=== PATIENT | female | born 1990 | race American Indian/Alaskan Native ===

== ENCOUNTER 2017-05-16 15:33 | Emergency (ER) | payer MEDICAID ==
[2017-05-16 15:55] VITALS: BP 136/71
[2017-05-16 16:23] LABS: Basophils % (Auto) 0.4 % (0.0-1.8); Eosinophils % (Auto) 1.6 % (0.0-4.3); Hematocrit 38.6 % (30.3-42.9); Mean Corpuscular HGB Conc 34 % (30-34); Mean Corpuscular Hemoglobin 30 pg (28-32); Mean Corpuscular Volume 90 fl (79-97); Platelet Count 216 K/mm3 (140-440); Red Blood Count 4.31 M/mm3 (3.65-5.03); Red Cell Distribution Width 13.3 % (13.2-15.2)
[2017-05-16 16:37] LABS: Anion Gap 15 mmol/L; Blood Urea Nitrogen 6 mg/dL (7-17); Calcium 9.3 mg/dL (8.4-10.2); Carbon Dioxide 25 mmol/L (22-30); Glucose 67 mg/dL (65-100); Potassium 3.8 mmol/L (3.6-5.0); Sodium 134 mmol/L (137-145)
[2017-05-16 16:51] LABS: Bacteria,Urine 1+ /HPF (Negative); Bilirubin,Urine NEG (Negative); Blood,Urine NEG (Negative); Ketones,Urine TR mg/dL (Negative); Leukocyte Esterase,Urine TR (Negative); Mucus,Urine FEW /HPF; Nitrite,Urine POS (Negative); Protein,Urine <15 mg/dL mg/dL (Negative); Urobilinogen,Urine < 2.0 mg/dL (<2.0)
[2017-05-16] MEDS ORDERED: NACL 0.9% 1000 ML 1,000 ML IV ONE ×2 (17:01→17:13)
--- NOTE | 2017-05-16 17:02 | Emergency Department Report ---
- General Chief complaint: Weakness Stated complaint: VAG BLEEDING/FAINTING Time Seen by Provider: 05/16/17 17:00 Source: patient Mode of arrival: Ambulatory Limitations: No Limitations - History of Present Illness Initial comments: 27-year-old female who presents emergency Department with complaint of syncope and slight vaginal spotting. Recently recognized that she was and currently has some small amount of spotting. No abdominal pain. She's had these episodes of syncope with her prior . She had a fairly extensive workup according the patient without any idea what caused her symptoms. She denies racing heart, chest pain, shortness of breath. Currently she appears mildly dehydrated. -: Sudden Severity: mild Improves with: none Associated Symptoms: easy bruising. denies: chest pain, confusion, shortness of breath - Related Data Home Medications Medication Instructions Recorded Confirmed Last Taken Vit-Fe Fumar-FA [ 1 tab PO QDAY 09/05/16 09/05/16 Unknown Vitamin] Previous Rx's Medication Instructions Recorded Last Taken Type Ferrous Sulfate [Feosol 325 MG tab] 325 mg PO BID #60 tablet 09/05/16 Unknown Rx Ibuprofen [Motrin 600 MG tab] 600 mg PO Q6H #30 tablet 09/05/16 Unknown Rx Vit-Fe Fumar-FA [ 1 each PO QDAY #30 tablet 09/05/16 Unknown Rx Vitamin] Allergies Allergy/AdvReac Type Severity Reaction Status Date / Time No Known Allergies Allergy Verified 05/16/17 15:55 ED Review of Systems ROS: Stated complaint: VAG BLEEDING/FAINTING Other details as noted in HPI Constitutional: denies: chills, fever Eyes: denies: eye pain, eye discharge, vision change ENT: denies: ear pain, throat pain Respiratory: denies: cough, shortness of breath, wheezing Cardiovascular: syncope. denies: chest pain Endocrine: no symptoms reported Gastrointestinal: denies: abdominal pain, nausea, diarrhea Genitourinary: denies: urgency, dysuria, discharge Musculoskeletal: denies: back pain, joint swelling, arthralgia Skin: denies: rash, lesions Neurological: denies: headache, weakness, paresthesias Psychiatric: denies: anxiety, depression Hematological/Lymphatic: denies: easy bleeding, easy bruising ED Past Medical Hx - Past Medical History Hx Hypertension: No Hx Congestive Heart Failure: No Hx Diabetes: No Hx Deep Vein Thrombosis: No Hx Renal Disease: No Hx Sickle Cell Disease: No Hx Seizures: No Hx Asthma: No Hx COPD: No Hx HIV: No Additional medical history: ANMENIA - Surgical History Additional Surgical History: C SECTIONx1 - Family History Family history: no significant - Social History Smoking Status: Never Smoker Substance Use Type: None - Medications Home Medications: Home Medications Medication Instructions Recorded Confirmed Last Taken Type Ferrous Sulfate [Feosol 325 MG tab] 325 mg PO BID #60 tablet 09/05/16 Unknown Rx Ibuprofen [Motrin 600 MG tab] 600 mg PO Q6H #30 tablet 09/05/16 Unknown Rx Vit-Fe Fumar-FA [ 1 each PO QDAY #30 tablet 09/05/16 Unknown Rx Vitamin] Vit-Fe Fumar-FA [ 1 tab PO QDAY 09/05/16 09/05/16 Unknown History Vitamin] ED Physical Exam - General Limitations: No Limitations General appearance: alert, in no apparent distress - Head Head exam: Present: atraumatic, normocephalic - Eye Eye exam: Present: normal appearance - ENT ENT exam: Present: mucous membranes dry - Neck Neck exam: Present: normal inspection. Absent: tenderness, meningismus - Respiratory Respiratory exam: Present: normal lung sounds bilaterally. Absent: respiratory distress - Cardiovascular Cardiovascular Exam: Present: regular rate, normal rhythm. Absent: systolic murmur, diastolic murmur, rubs, gallop - GI/Abdominal GI/Abdominal exam: Present: soft, normal bowel sounds - Extremities Exam Extremities exam: Present: normal inspection - Back Exam Back exam: Present: normal inspection - Neurological Exam Neurological exam: Present: alert, oriented X3 - Psychiatric Psychiatric exam: Present: normal affect, normal mood - Skin Skin exam: Present: warm, dry, intact, normal color. Absent: rash ED Course Vital Signs 05/16/17 05/16/17 15:48 18:13 Temperature 98.3 F Pulse Rate 90 Respiratory 18 18 Rate Blood Pressure 136/71 O2 Sat by Pulse 100 100 Oximetry ED Medical Decision Making - Lab Data Result diagrams: 05/16/17 16:07 05/16/17 16:07 Laboratory Results - last 24 hr 05/16/17 05/16/17 05/16/17 16:07 16:07 16:07 WBC 10.0 RBC 4.31 Hgb 13.0 Hct 38.6 MCV 90 MCH 30 MCHC 34 RDW 13.3 Plt Count 216 Lymph % (Auto) 27.7 [place] % (Auto) 9.6 H Eos % (Auto) 1.6 Baso % (Auto) 0.4 Lymph # 2.8 [place] # 1.0 H Eos # 0.2 Baso # 0.0 Seg Neutrophils % 60.7 Seg Neutrophils # 6.1 Sodium 134 L Potassium 3.8 Chloride 98.0 Carbon Dioxide 25 Anion Gap 15 BUN 6 L Creatinine 0.5 L Estimated GFR > 60 BUN/Creatinine Ratio 12.00 Glucose 67 Calcium 9.3 HCG, Quant 940018 H Urine Bilirubin Urine RBC (Auto) U Epithel Cells (Auto) 05/16/17 16:25 WBC RBC Hgb Hct MCV MCH MCHC RDW Plt Count Lymph % (Auto) [place] % (Auto) Eos % (Auto) Baso % (Auto) Lymph # [place] # Eos # Baso # Seg Neutrophils % Seg Neutrophils # Sodium Potassium Chloride Carbon Dioxide Anion Gap BUN Creatinine Estimated GFR BUN/Creatinine Ratio Glucose Calcium HCG, Quant Urine Bilirubin Neg Urine RBC (Auto) 2.0 U Epithel Cells (Auto) 2.0 - EKG Data -: EKG Interpreted by Or EKG shows normal: sinus rhythm, axis, intervals, QRS complexes, ST-T waves Rate: normal (73) - Medical Decision Making 27-year-old female here with complaint of syncopal episode and small amount of vaginal spotting. She has no abdominal pain. However plan to confirm IUP with ultrasound. EKG is unremarkable labs are unremarkable. I do not suspect this patient has peripartum cardiomyopathy. Plan to give IV fluids for dehydration as a suspect this is the cause of her syncope. Labs here are unremarkable. Patient has a twin gestation in her uterus. She has a small subchorionic hemorrhage. I discussed the possibility of miscarriage with her she has plans to follow up with her tectonophysicist on Thursday. At this point I do not see any reason to further evaluate her for the syncope. Plan to discharge her home. Portions of this chart were dictated with dictation software. There may be dictation errors contained within this note. Critical care attestation.: If time is entered above; I have spent that time in minutes in the direct care of this critically ill patient, excluding procedure time. ED Disposition Clinical Impression: , Twin gestation in first trimester, Syncopal episodes Disposition: DC- TO HOME OR SELFCARE Is pt being admited?: No Does the pt Need Aspirin: No Condition: Stable Instructions: Syncope (ED), Threatened Miscarriage (ED), (ED) Additional Instructions: Please follow up immediately on Thursday with your tectonophysicist. Referrals: PRIMARY CARE, [Primary Care Provider] - 3-5 Days
--- NOTE | 2017-05-16 19:15 | Ultrasound Report ---
FINAL REPORT PROCEDURE: US OB \T\lt; = 14 WK FETUS ADD GEST TECHNIQUE: Real-time transabdominal and transvaginal sonography of the uterus, placenta, amniotic fluid, adnexa, and fetus was performed with image documentation. Measurements were obtained to determine age/size. M-mode Doppler was used to document heartbeat. There is imaging of twin gestation. HISTORY: vaginal bleeding, preg COMPARISON: No prior studies are available for comparison. FINDINGS: ADDITIONAL GESTATION: There is twin gestation. Twin a: [place]-rump length of 2.4 cm corresponding to 9 weeks 1 day gestational age. Heart rate is 170 beats per minute. Twin B: [place]-rump length of 2.2 cm corresponding to 9 weeks 0 days gestational age. Heart rate is 168 beats per minute. There is a 2.9 x 1.3 x 0.6 cm subchorionic hemorrhage adjacent to the twin B gestational sac. Cervix is closed. Right ovary measures 3.3 x 2.1 x 2.1 cm. Left ovary measures 4.5 x 2.4 x 2.5 cm. Normal Doppler flow seen in the ovaries. No free pelvic fluid is seen. IMPRESSION: Twin live is seen at 9 weeks 1 day gestational age. Estimated date of delivery based on this exam is December 18, 2017. 2.9 x 1.3 x 0.6 cm subchorionic hemorrhage is seen associated with the twin B gestational sac.
--- NOTE | 2017-05-16 19:15 | Ultrasound Report ---
FINAL REPORT PROCEDURE: US OB \T\lt; = 14 WEEKS FETUS TECHNIQUE: Real-time transabdominal and transvaginal sonography of the uterus, placenta, amniotic fluid, adnexa, and fetus was performed with image documentation. Measurements were obtained to determine age/size. M-mode Doppler was used to document heartbeat. Imaging is performed of twin . HISTORY: syncope, vaginal bleeding COMPARISON: No prior studies are available for comparison. FINDINGS: ADDITIONAL GESTATION: There is twin gestation. Twin a: [place]-rump length of 2.4 cm corresponding to 9 weeks 1 day gestational age. Heart rate is 170 beats per minute. Twin B: [place]-rump length of 2.2 cm corresponding to 9 weeks 0 days gestational age. Heart rate is 168 beats per minute. There is a 2.9 x 1.3 x 0.6 cm subchorionic hemorrhage adjacent to the twin B gestational sac. Cervix is closed. Right ovary measures 3.3 x 2.1 x 2.1 cm. Left ovary measures 4.5 x 2.4 x 2.5 cm. Normal Doppler flow seen in the ovaries. No free pelvic fluid is seen. IMPRESSION: Twin live is seen at 9 weeks 1 day gestational age. Estimated date of delivery based on this exam is December 18, 2017. 2.9 x 1.3 x 0.6 cm subchorionic hemorrhage is seen associated with the twin B gestational sac.
--- NOTE | 2017-05-16 19:16 | Ultrasound Report ---
FINAL REPORT PROCEDURE: US OB TRANSVAGINAL TECHNIQUE: Real-time transabdominal and transvaginal sonography of the uterus, placenta, amniotic fluid, adnexa, and fetus was performed with image documentation. Measurements were obtained to determine age/size. M-mode Doppler was used to document heartbeat. Imaging is performed of twin . HISTORY: first trimester preg, spotting COMPARISON: No prior studies are available for comparison. FINDINGS: ADDITIONAL GESTATION: There is twin gestation. Twin a: [place]-rump length of 2.4 cm corresponding to 9 weeks 1 day gestational age. Heart rate is 170 beats per minute. Twin B: [place]-rump length of 2.2 cm corresponding to 9 weeks 0 days gestational age. Heart rate is 168 beats per minute. There is a 2.9 x 1.3 x 0.6 cm subchorionic hemorrhage adjacent to the twin B gestational sac. Cervix is closed. Right ovary measures 3.3 x 2.1 x 2.1 cm. Left ovary measures 4.5 x 2.4 x 2.5 cm. Normal Doppler flow seen in the ovaries. No free pelvic fluid is seen. IMPRESSION: Twin live is seen at 9 weeks 1 day gestational age. Estimated date of delivery based on this exam is December 18, 2017. 2.9 x 1.3 x 0.6 cm subchorionic hemorrhage is seen associated with the twin B gestational sac.
== END 2017-05-16 20:01 | disposition home or self-care (01) ==
LOC: ED 15:33
DX: O26.891 Other specified pregnancy related conditions, first trimester (principal); O30.002 Twin pregnancy, unspecified number of placenta and unspecified number of amniotic sacs, second trimester; R55 Syncope and collapse; Z3A.08 8 weeks gestation of pregnancy; D64.9 Anemia, unspecified
CPT/HCPCS: 36415; 76801; 76802; 76817; 80048; 81001; 82962; 84702; 85025; 93005; 93010; 96360; 99284; J7030